=== PATIENT | female | born 1995 | race Caucasian/White ===

== ENCOUNTER 2019-02-13 12:41 | Outpatient (CLI) | payer MEDICAID ==
[2019-02-13 13:06] VITALS: BP 117/58
[2019-02-13] MEDS ORDERED: PREN1TAB71 PO (13:07)
[2019-02-13] MEDS ORDERED: FERR134T PO (13:08)
--- NOTE | 2019-02-13 23:48 | PN ---
Triage Information Date/Time Reason for visit: Possible leakage of fluid Weeks of Gestation 29 weeks and 3 days /Para -0-0-2 Diabetes: none Objective Vital Signs Date Temp Pulse Resp B/P (MAP) Pulse Ox O2 O2 Flow FiO2 Time Delivery Rate 02/13/19 98.0 117/58 13:06 (77) Heart Rate: 130's Contractions: None Results/Medications Results 24 hrs Laboratory Tests Test 02/13/19 13:20 Membranes Rupture NEGATIVE Disposition: Discharge Assessment/Plan 23 years old 3 para 2-0-0-2 with single intrauterine at 29 weeks and 3 days with [facility]WIN of 04/28/2019 complaining of possible leakage of fluid. She states good movement. She denies nausea, vomiting, shortness of breath, chest pain, headache, visual changes, vaginal bleeding. -FHR: No sign of metabolic acidosis- Category I -Contractions: None -Speculum exam performed no leakage or gush of fluid seen. ROM plus was negative -Ultrasound performed: Normal ASIA-19.5 cm -Symptoms and sign of labor, preeclampsia, kick count discussed with patient, she voiced understanding. All of her questions answered. -Patient was discharged home in stable condition with the appropriate discharge instructions provided. I would like patient to have close follow-up with her primary physician or outpatient clinic in 1-2 days or return to triage for worsening symptoms or any other urgent concerns. MARLO HINSON Feb 13, 2019 23:48
== END 2019-02-13 15:25 | disposition home or self-care (01) ==
LOC: OBT 12:41 → L-D 12:42 → OBT 15:25
PROVIDERS: ATTEND Obstetrics & Gynecology
DX: O42.913 Preterm premature rupture of membranes, unspecified as to length of time between rupture and onset of labor, third trimester (principal); Z3A.29 29 weeks gestation of pregnancy
CPT/HCPCS: 76815; 84112; Z7500; G0463

== ENCOUNTER 2019-04-08 19:42 | Outpatient (CLI) | payer MEDICAID ==
[~2019-04-08] VITALS: Ht 162.6 cm; Wt 83.1 kg
[~2019-04-08 19:42] MED LIST: FERR134T PO; PREN1TAB71 PO
[2019-04-08 20:00] VITALS: BP 119/69; PULSE 85; RESP 16
[2019-04-08 20:01] VITALS: Ht 162.6 cm; Wt 83.1 kg
== END 2019-04-08 20:10 | disposition home or self-care (01) ==
LOC: OBT 19:42 → L-D 19:43 → OBT 20:10
PROVIDERS: ATTEND Obstetrics & Gynecology
DX: O60.03 Preterm labor without delivery, third trimester (principal); Z3A.37 37 weeks gestation of pregnancy
CPT/HCPCS: G0463

== ENCOUNTER 2019-04-15 08:46 | Inpatient (IN) | payer MEDICAID ==
[~2019-04-15] VITALS: Ht 167.6 cm; Wt 83.3 kg
[2019-04-15] MEDS ORDERED: LIDOCAINE 1% (MPF) 30 ML INJ INJ PRN (09:00)
[2019-04-15] MEDS ORDERED: OXYTOCIN 30 UNITS/LR 500 ML IV PRN ×2 (09:00→12:00)
[2019-04-15] MEDS ORDERED: OXYTOCIN 30 UNITS/LR 500 ML IV SCH ×3 (09:00→11:40)
[2019-04-15] MEDS ORDERED: CARBOPROST 250 MCG INJ IM PRN ×2 (09:00→12:00)
[2019-04-15] MEDS ORDERED: METHYLERGONOVINE 0.2 MG INJ IM PRN ×2 (09:00→12:00)
[2019-04-15] MEDS ORDERED: AMPICILLIN 2 GM/NS (PMX) 100 ML IV ONE (09:00)
[2019-04-15] MEDS ORDERED: IBUPROFEN 600 MG TAB PO PRN (09:00)
[2019-04-15] MEDS ORDERED: MISOPROSTOL 200 MCG TAB PR PRN ×2 (09:00→12:00)
[2019-04-15 09:18] VITALS: Ht 167.6 cm; Wt 83.3 kg
[2019-04-15 11:05] VITALS: BP 117/71; PULSE 67; RESP 18
[2019-04-15] MEDS: LACTATED RINGER'S 1,000 ML IV* SCH ×2 (11:40→17:53)
[2019-04-15] MEDS ORDERED: HYDROCODONE/APAP (5/325) TAB PO PRN (12:00)
[2019-04-15] MEDS ORDERED: MAGNESIUM HYDROXIDE 30ML CUP PO PRN (12:00)
[2019-04-15] MEDS ORDERED: BENZOCAINE 20% 56 ML SPRAY TOP PRN (12:00)
[2019-04-15] MEDS ORDERED: ACETAMINOPHEN 325 MG TAB PO PRN (12:00)
[2019-04-15] MEDS ORDERED: ZOLPIDEM 5 MG TAB PO PRN (12:00)
[2019-04-15] MEDS ORDERED: SENNA/DOCUSATE NA (8.6MG/50MG) TAB PO PRN (12:00)
[2019-04-15] MEDS ORDERED: LANOLIN HPA 1 PKT TOP PRN (12:00)
[2019-04-15] MEDS ORDERED: WITCH HAZEL/GLYCERIN PAD PR PRN (12:00)
[2019-04-15] MEDS ORDERED: DIPHENHYDRAMINE 25 MG CAP PO PRN (12:00)
[2019-04-15] MEDS: IBUPROFEN 800 MG TAB PO SCH ×2 (12:29→17:56)
[2019-04-15] MEDS ORDERED: AMPICILLIN 1 GM/NS (PMX) 50 ML IV SCH (13:00)
[2019-04-15 15:00] VITALS: BP 118/60; PULSE 73; RESP 18
[2019-04-15 20:00] VITALS: BP 113/55; PULSE 72; RESP 19
[2019-04-16 00:10] VITALS: BP 117/80; PULSE 68; RESP 18
[2019-04-16 03:56] VITALS: BP 98/52; PULSE 60; RESP 18
[2019-04-16] MEDS: IBUPROFEN 800 MG TAB PO SCH ×5 (05:36→23:55)
[2019-04-16 08:00] VITALS: BP 113/67; PULSE 73; RESP 18
[2019-04-16 16:41] VITALS: BP 112/56; PULSE 67; RESP 18
[2019-04-16 20:15] VITALS: BP 123/61; PULSE 71; RESP 18
[2019-04-17 04:05] VITALS: BP 119/56; PULSE 72; RESP 18
[2019-04-17] MEDS: IBUPROFEN 800 MG TAB PO SCH (06:13)
[2019-04-17 09:00] VITALS: BP 109/65; PULSE 65; RESP 18
[2019-04-17] MEDS ORDERED: DIPHTH/TET/ACEL PERTUSS (ADULT) 0.5 ML VIAL IM* ONE (09:00)
[2019-04-17] MEDS ORDERED: VARICELLA VACCINE LIVE/PF 1,350 UNIT/0.5 ML ML SC* ONE (09:00)
[2019-04-17] MEDS ORDERED: MEASLES,MUMPS,RUBELLA VACCINE INJ SC* ONE (09:00)
== END 2019-04-17 13:30 | disposition home or self-care (01) | DRG 807 ==
LOC: L-D 08:46 → PP1 11:00 → EDSTATUS 04-28 08:46
PROVIDERS: ADMIT Obstetrics & Gynecology; ATTEND Obstetrics & Gynecology
PROC: 10E0XZZ Delivery of Products of Conception, External Approach (ICD-10-PCS; principal; 2019-04-15)
DX: O80 Encounter for full-term uncomplicated delivery (principal); Z37.0 Single live birth; Z3A.38 38 weeks gestation of pregnancy
CPT/HCPCS: 85025; 85610; 85730; 86592; 86850; 86900; 86901; 87340; 90715; 90716; G0463; J2590; J7120